=== PATIENT | female | born 1990 | race Hispanic/Latino ===

== ENCOUNTER 2017-06-12 06:45 | Day surgery (SDC) | payer OTHER ==
[2017-06-12 07:08] VITALS: BMI 20.7
--- NOTE | 2017-06-12 08:14 | CP.SDSHP ---
Same Day Surgery H & P - History Proposed Procedure: EGD Pre-Op Diagnosis: heartburn - Allergies Allergies: Allergies Penicillins Allergy (Intermediate, Verified 06/12/17 07:06) SWELLING SWELLING OF THROAT - Physical Exam General Appearance: NAD Vital Signs: Vital Signs 06/12/17 06:50 Temperature 98 F Pulse Rate 89 Respiratory 20 Rate Blood Pressure 119/66 O2 Sat by Pulse 100 Oximetry Mental Status: Alert & Oriented x3 Neuro: WNL Heart: WNL Lungs: WNL GI: WNL - {Optional Preform as Required} Abdomen: WNL - Impression Pt. Evaluated Today:Candidate for Anesthesia & Procedure: Yes - Date & Time Date: 06/12/17 Time: 08:14 Short Stay Discharge - Short Stay Discharge Admitting Diagnosis/Reason for Visit: HEARTBURN Disposition: HOME/ ROUTINE
[2017-06-12] MEDS ORDERED: Lactated Ringer's 1,000 ML IV ONE (08:15)
[2017-06-12] MEDS ORDERED: Propofol 10 mg/ml Inj (20 ML) ONE ×2 (08:17→08:24)
[2017-06-12 08:54] VITALS: TEMP 98.9
[2017-06-12 09:29] VITALS: BP 95/55; PULSE 73; RESP 16; O2SAT 98
== END 2017-06-12 09:50 | disposition home or self-care (01) ==
LOC: C.ENDO 06:45
PROVIDERS: ATTEND Internal Medicine Gastroenterology
DX: K21.0 Gastro-esophageal reflux disease with esophagitis (principal); K29.70 Gastritis, unspecified, without bleeding
CPT/HCPCS: 43239; 84703; 88305; J2001; J2704; J3010; J7120